=== PATIENT | male | born 1985 | race Caucasian/White ===

== ENCOUNTER 2024-05-30 12:48 | Emergency (ER) | payer OTHER ==
[2024-05-30] MEDS ORDERED: Acetaminophen 500 MG TAB ONE (13:07)
[2024-05-30] MEDS ORDERED: Ketorolac Tromethamine 30 MG (1 mL) VIAL ONE (14:16)
== END 2024-05-30 14:21 ==
LOC: EDBD 12:48 → EEVIPCON 12:48 → ERS 12:48
DX: S93.401A Sprain of unspecified ligament of right ankle, initial encounter (principal); S80.01XA Contusion of right knee, initial encounter; I10 Essential (primary) hypertension; W10.9XXA Fall (on) (from) unspecified stairs and steps, initial encounter
CPT/HCPCS: 96374; J1885